=== PATIENT | male | born 1955 | race Caucasian/White ===

== ENCOUNTER → 2016-07-14 | Outpatient (CLI) | payer BC ==
[2016-07-19 18:03] LABS: COCCIDIOIDES AB TITER (CF) <1:2; COCCIDIOIDES F ANTIGEN AB IGG NEGATIVE; COCCIDIOIDES TP ANTIGEN AB IGM NEGATIVE
== END | disposition home or self-care (01) ==
LOC: LAB 16:44
PROVIDERS: ATTEND Emergency Medicine
DX: J06.9 Acute upper respiratory infection, unspecified (principal); J30.9 Allergic rhinitis, unspecified; J20.9 Acute bronchitis, unspecified; J38.01 Paralysis of vocal cords and larynx, unilateral; B37.0 Candidal stomatitis
CPT/HCPCS: 83615; 86635

== ENCOUNTER 2018-03-22 06:12 | Day surgery (SDC) | END 2018-03-22 10:47 | disposition home or self-care (01) ==